=== PATIENT | female | born 1990 | race Two or more races ===

== ENCOUNTER 2019-01-04 19:50 | Emergency (ER) | payer SELFPAY ==
[~2019-01-04] VITALS: Ht 162.6 cm; Wt 93.0 kg
[2019-01-04 20:20] VITALS: BP 105/55
[2019-01-04] MEDS ORDERED: ACETAMINOPHEN 500 MG TABLET PO ONE (21:45)
[2019-01-04] MEDS ORDERED: IBUPROFEN 400 MG TABLET. PO ONE (21:45)
[2019-01-04] MEDS ORDERED: AMOX500C PO (21:47)
--- NOTE | 2019-01-04 21:47 | PHYS DOC ---
Past Medical History Past Medical History: No Pertinent History (GREGORY VIEYRA APRN) Past Surgical History: No Surgical History (GREGORY VIEYRA APRN) Alcohol Use: None Drug Use: None (GREGORY VIEYRA APRN) Adult General Chief Complaint Chief Complaint: FEVER HPI HPI Patient is a 28 year old female who presents to the emergency department, accompanied by her family, with complaints of fever, sore throat, headache, and body aches since yesterday. Patient has not taken any Tylenol or ibuprofen for the pain or fever. She currently rates the pain a 10 out of 10 on pain scale, there are no alleviating or exacerbating factors. (GREGORY VIEYRA APRN) Review of Systems Review of Systems Constitutional: reports fever and body aches Eyes: Denies change in visual acuity, redness, or eye pain [] HENT: Denies nasal congestion or sore throat [] Respiratory: Denies cough or shortness of breath [] Cardiovascular: No additional information not addressed in HPI [] GI: Denies abdominal pain, nausea, vomiting, or diarrhea [] : Denies dysuria or hematuria [] Musculoskeletal: reports body aches Integument: Denies rash or skin lesions [] Neurologic: Denies focal weakness or sensory changes [] Complete systems were reviewed and found to be within normal limits, except as documented in this note. (GREGORY VIEYRA APRN) Current Medications Current Medications Current Medications Medications (Trade) Dose Ordered Sig/[place] Start Time Stop Time Status Last Admin Dose Admin Acetaminophen (Tylenol) 1,000 mg 1X ONCE 01/04/19 21:45 01/04/19 21:46 DC 01/04/19 21:44 1,000 MG Ibuprofen (Motrin) 600 mg 1X ONCE 01/04/19 21:45 01/04/19 21:46 DC 01/04/19 21:44 600 MG (CHAVA LOUISE DO) Allergies Allergies Allergies Coded Allergies Type Severity Reaction Last Updated Verified No Known Drug Allergies 01/04/19 No (CHAVA LOUISE DO) Physical Exam Physical Exam Constitutional: Well developed, well nourished, moderate distress, ill appearance, obese . [] HENT: Normocephalic, atraumatic, bilateral external ears normal, oropharynx moist, 2+ erythematous tonsils bilat with exudate, nose normal. [] Eyes: PERRLA, EOMI, conjunctiva normal, no discharge. [] Neck: Normal range of motion, anterior cervical tenderness, no stridor. [] Cardiovascular:Heart rate regular rhythm Lungs & Thorax: Bilateral breath sounds clear to auscultation [] Skin: Flushed, hot, dry no rash. [] Back: No tenderness Extremities: No cyanosis, no clubbing, ROM intact, no edema. [] Neurologic: Alert and oriented X 3, no focal deficits noted. [] Psychologic: Affect normal, judgement normal, mood normal. [] (GREGORY VIEYRA APRN) Current Patient Data Vital Signs Vital Signs Date Time Temp Pulse Resp B/P (MAP) Pulse Ox O2 Delivery O2 Flow Rate FiO2 01/04/19 20:20 102.1 105 26 105/55 (72) 98 Room Air 102.1 (LOUISE,CHAVA Irving DO) EKG EKG [] (GREGORY VIEYRA APRN) Radiology/Procedures Radiology/Procedures [] (GREGORY VIEYRA APRN) Course & Med Decision Making Course & Med Decision Making Pertinent Labs and Imaging studies reviewed. (See chart for details) [] (GREGORY VIEYRA APRN) Dragon Disclaimer Dragon Disclaimer This electronic medical record was generated, in whole or in part, using a voice recognition dictation system. (GREGORY VIEYRA APRN) Departure Departure Impression: Primary Impression: Strep pharyngitis Additional Impression: Fever and chills Disposition: 01 HOME, SELF-CARE Condition: STABLE Referrals: NO PCP (PCP) Patient Instructions: Fever, Adult, [id number], Strep Throat, [id number] Additional Instructions: Fill prescription and use as directed. Recommend warm salt water gargles as needed for relief of discomfort. Alternate Tylenol and ibuprofen as needed for fever/pain. Discard your toothbrush tomorrow and begin using a new toothbrush. Follow-up with primary care doctor if symptoms persist. Return to the ER if symptoms worsen. Scripts Amoxicillin (AMOXICILLIN) 500 Mg Capsule 1 CAP PO BID for 10 Days, #20 CAP 0 Refills Prov: GREGORY VIEYAR APRN 01/04/19 Attending Signature Attending Signature I have reviewed the PA/FEED CRUSHER's note and plan of care. I was available for consultation as needed during the patient's visit in the emergency department. I agree with the clinical impression, plan, and disposition. (CHAVA LOUISE DO) Problem Qualifiers GREGORY VIEYRA APRN Jan 04, 2019 21:47 CHAVA LOUISE DO Jan 04, 2019 22:09
== END 2019-01-04 21:53 | disposition home or self-care (01) ==
LOC: ER 19:50
DX: J02.0 Streptococcal pharyngitis (principal); B95.0 Streptococcus, group A, as the cause of diseases classified elsewhere
CPT/HCPCS: 99283